=== PATIENT | male | born 1995 | race Caucasian/White ===

== ENCOUNTER 2021-09-24 16:54 | Emergency (ER) | payer SELFPAY | END 2021-09-24 18:00 | disposition home or self-care (01) | LOC: NAV ERS 16:54 | DX: R31.9 Hematuria, unspecified (principal); R30.0 Dysuria; Z46.6 Encounter for fitting and adjustment of urinary device; Z87.891 Personal history of nicotine dependence | CPT/HCPCS: 99283 ==